=== PATIENT | female | born 1970 | race American Indian/Alaskan Native ===

== ENCOUNTER 2017-12-14 16:22 | Inpatient (IN) | payer MEDICAID, OTHER ==
[2017-12-14] MEDS ORDERED: Nicardipine 20 MG/200 ML 20 MG/200 ML BAG IV PRN ×2 (17:05→19:46)
--- NOTE | 2017-12-14 17:15 | ED PDOC ---
Arrival/HPI - General Chief Complaint: High Blood Pressure Time Seen by Provider: 12/14/17 17:03 Historian: Patient - History of Present Illness Narrative History of Present Illness (Text): 12/14/17 17:10 Patient is a 47 year old female whose past medical history includes hypertension, who presents to the emergency department complaining of elevated blood pressure. Patient reports that she hasn't taken her antihypertensive med ication for the past year. She notes that her medication regimen included Lisinopril but doesn't remember the other medication. Patient states that her current emergency department visited was prompted by seeing floaters for the past month. She currently denies any chest pain, headaches, shortness of breath, dyspnea on exertion, or any other complaints. Past Medical History - Travel History If Yes, travel location?: [place]; [place] - Cardiac Hx Cardiac Disorders: Yes Hx Hypertension: Yes - Pulmonary Hx Respiratory Disorders: No - Neurological Hx Neurological Disorder: No - HEENT Hx HEENT Disorder: No - Renal Hx Renal Disorder: No - Endocrine/Metabolic Hx Endocrine Disorders: No - Hematological/Oncological Hx Blood Disorders: No - Integumentary Hx Dermatological Disorder: No - Musculoskeletal/Rheumatological Hx Musculoskeletal Disorders: No - Gastrointestinal Hx Gastrointestinal Disorders: No - Genitourinary/Gynecological Hx Genitourinary Disorders: No - Psychiatric Hx Psychophysiologic Disorder: No Hx Substance Use: No - Anesthesia Hx Anesthesia: No Family/Social History Family/Social History: No Known Family HX Smoking Status: Heavy Smoker > 10 Cigarettes Daily Hx Alcohol Use: No Hx Substance Use: No Allergies/Home Meds Allergies/Adverse Reactions: Allergies No Known Allergies Allergy (Verified 12/14/17 16:49) Review of Systems - Review of Systems Eyes: Other (sees floaters) Respiratory: absent: SOB Cardiovascular: absent: Chest Pain, Edema, KATZ Neurological: absent: Headache, Dizziness Physical Exam Vital Signs Reviewed: Yes Vital Signs Temp Pulse Resp BP Pulse Ox 12/14/17 16:43 98.9 F 89 18 232/126 H 99 Temperature: Afebrile Blood Pressure: Hypertensive Pulse: Regular Respiratory Rate: Normal Appearance: Positive for: Well-Appearing Mental Status: Positive for: Alert and Oriented X 3 - Systems Exam Head: Present: Atraumatic, Normocephalic Pupils: Present: PERRL Extroacular Muscles: Present: EOMI Conjunctiva: Present: Normal Mouth: Present: Moist Mucous Membranes Neck: Present: Normal Range of Motion Respiratory/Chest: Present: Clear to Auscultation, Good Air Exchange. No: Respiratory Distress, Accessory Muscle Use Cardiovascular: Present: Regular Rate and Rhythm, Normal S1, S2. No: Murmurs Abdomen: No: Tenderness, Distention, Peritoneal Signs Back: Present: Normal Inspection Upper Extremity: Present: Normal Inspection. No: Cyanosis, Edema Lower Extremity: Present: Normal Inspection. No: Edema Neurological: Present: GCS=15, CN II-XII Intact, Speech Normal Skin: Present: Warm, Dry, Normal Color. No: Rashes Psychiatric: Present: Alert, Oriented x 3, Normal Insight, Normal Concentration Medical Decision Making ED Course and Treatment: 12/14/17 17:10 Impression: Patient is a 47 year old female complaining of elevated blood pressure and s eeing floaters. Differential Diagnosis included but are not limited to: Plan: -- Head CT without contrast -- EKG -- Cardiac enzymes -- Labs -- Blood work -- Chest X-ray -- Apresoline -- Nitrostat -- Reassess and disposition Progress Notes: 12/14/17 17:21 12/14/17 21:35 blood pressure still significantly elevated despite multiple interventions. patient does not exhibit acute end organ damage but BP remains critically high. will start patient on cardene drip and admit to icu. 12/14/17 22:32 admit accepted by hospitalist, blood pressure sig improved while on cardene drip. patient at this time does warrant icu but case has been discussed with dr. carnes for admission. - Lab Interpretations I have reviewed the lab results: Yes - RAD Interpretation Narrative RAD Interpretations (Text): 12/14/17 20:[address] without IV Contrast: Dictator: Dr.Aamer Escalante FINDINGS: BRAIN: No acute intraparenchymal hemorrhage. No mass lesion. No CT evidence for acute territorial infarct. No midline shift or extra-axial collections. VENTRICLES: No hydrocephalus ORBITS: The orbits are unremarkable. SINUSES AND MASTOIDS: There is opacification of the visualized right maxillary sinus. BONE: No fracture. IMPRESSION: 1) Normal appearing brain. 2) Right maxillary sinusitis. Radiology Orders: 12/14/17 17:03 CHEST PORTABLE [RAD] Stat 12/14/17 17:04 HEAD W/O CONTRAST [CT] Stat Auto Seat Cover Installer: Radiologist - EKG Interpretation EKG Interpretation (Text): 12/14/17 19:19 1716: nsr at 89 bpm, nonspecific intraventricular conduction delay, lvh, nonspecific t wave abn Interpreted by ED Physician: Yes Type: 12 lead EKG - Medication Orders Current Medication Orders: Nicardipine HCl (Cardene Iv Premix) 20 mg in 200 mls @ 50 mls/hr IV .Q4H PRN; Protocol PRN Reason: TITRATE PER MD ORDER - Scribe Statement The provider has reviewed the documentation as recorded by the Scribe Noble Rick Provider Scribe Attestation: All medical record entries made by the Scribe were at my direction and personally dictated by me. I have reviewed the chart and agree that the record accurately reflects my personal performance of the history, physical exam, medical decision making, and the department course for this patient. I have also personally directed, reviewed, and agree with the discharge instructions and disposition. Disposition/Present on Arrival - Present on Arrival Any Indicators Present on Arrival: No History of DVT/PE: No History of Uncontrolled Diabetes: No Urinary Catheter: No History of Decub. Ulcer: No History Surgical Site Infection Following: None - Disposition Have Diagnosis and Disposition been Completed?: Yes Diagnosis: Hypertension Disposition: HOSPITALIZED Disposition Time: 21:00 Patient Plan: Admission Condition: FAIR
[2017-12-14 17:35] LABS: BASO # 0.02 K/mm3 (0.0-2.0); BASO % 0.3 % (0.0-3.0); EOS # 0.1 (0.0-0.7); EOS % 1.1 % (1.5-5.0); GRAN # 3.91 (1.4-6.5); GRAN % 62.8 % (50.0-68.0); HEMOGLOBIN 10.1 g/dL (12.0-16.0); LYMPH # 1.9 (1.2-3.4); LYMPH % 29.9 % (22.0-35.0); MEAN CELL VOLUME 87.2 fl (80.0-105.0); MEAN CORPUSCULAR HEMOGLOBIN 28.1 pg (25.0-35.0); MEAN CORPUSCULAR HGB CONC 32.3 g/dl (31.0-37.0); MEAN PLATELET VOLUME 9.9 fl (7.0-11.0); MONO # 0.4 (0.1-0.6); MONO % 5.9 % (1.0-6.0); RBC 3.59 10^6/uL (3.5-6.1); RED CELL DISTRIBUTION WIDTH 16.2 % (11.5-14.5); WHITE BLOOD COUNT 6.2 10^3/ul (4.5-11.0)
[2017-12-14 17:44] LABS: INR 1.03; PARTIAL THROMBOPLASTIN TIME 23.8 Seconds (25.1-36.5); PROTHROMBIN TIME 11.7 SECONDS (9.4-12.5)
[2017-12-14 17:46] LABS: ALB/GLOB RATIO 1.1 (1.1-1.8); ALBUMIN 4.1 g/dL (3.0-4.8); ALT/SGPT 22 U/L (7-56); AST/SGOT 49 U/L (14-36); BLOOD UREA NITROGEN 13 mg/dL (7-21); CALCIUM 8.6 mg/dL (8.4-10.5); GFR NON-AFRICAN AMERICAN > 60
[2017-12-14 17:58] LABS: TROPONIN I < 0.01 ng/mL
[2017-12-15 00:24] LABS: HDL CHOLESTEROL 82 mg/dL (29-60)
[2017-12-15 00:42] LABS: LDL CHOLESTEROL 74 mg/dL (0-129)
--- NOTE | 2017-12-15 00:43 | CP.PCM.HP ---
<Sharon Hutton - Last Filed: 12/15/17 01:12> History of Present Illness - History of Present Illness History of Present Illness: HISTORY & PHYSICAL NOTE FOR HOSPITALIST TEAM Sharon Hutton D.O. PGY-1 CC: Seeing floaters, vision changes, hypertension 47 y/o F with PMHx of HTN presents to [facility] with complaints of "seeing white dots" and floaters for the past month. Pt reports that she has not seen a physician in over a year due to lack of insurance. She is aware that he has hypertension, but has not taken any medications in a year. She notes that she has symptoms of vision changes which include "jumping white dots" when her blood pressure increases. She denies fevers, chills, headache, dizziness, one-sided weakness, numbness, tingling, chest pain, palpitations, shortness of breath, nausea, vomiting, constipation, diarrhea, dysuria. PMH: HTN All: NKDA PSH: Denies SH: 1/2 pack/day x 20 years. Denies alcohol or illicit drug use. Admits to high salt diet FH: Mother: HIV, at 37 y/o. Father: unknown Meds: Previously had taken amlodipine. Tylenol pm for sleep PMD: none Present on Admission - Present on Admission Any Indicators Present on Admission: No Review of Systems - Review of Systems Review of Systems: as per HPI Past Patient History - Past Social History Smoking Status: Heavy Smoker > 10 Cigarettes Daily - CARDIAC Hx Cardiac Disorders: Yes Hx Hypertension: Yes - PULMONARY Hx Respiratory Disorders: No - NEUROLOGICAL Hx Neurological Disorder: No - HEENT Hx HEENT Problems: No - RENAL Hx Chronic Kidney Disease: No - ENDOCRINE/METABOLIC Hx Endocrine Disorders: No - HEMATOLOGICAL/ONCOLOGICAL Hx Blood Disorders: No - INTEGUMENTARY Hx Dermatological Problems: No - MUSCULOSKELETAL/RHEUMATOLOGICAL Hx Musculoskeletal Disorders: No - GASTROINTESTINAL Hx Gastrointestinal Disorders: No - GENITOURINARY/GYNECOLOGICAL Hx Genitourinary Disorders: No - PSYCHIATRIC Hx Psychophysiologic Disorder: No Hx Substance Use: No - SURGICAL HISTORY Hx Surgeries: No - ANESTHESIA Hx Anesthesia: No Meds Allergies/Adverse Reactions: Allergies Allergy/AdvReac Type Severity Reaction Status Date / Time No Known Allergies Allergy Verified 12/14/17 16:49 Physical Exam - Constitutional Appears: Well, Non-toxic, No Acute Distress - Head Exam Head Exam: NORMAL INSPECTION, NORMOCEPHALIC - Eye Exam Eye Exam: EOMI, Normal appearance, PERRL - ENT Exam ENT Exam: Mucous Membranes Moist, Normal Exam - Neck Exam Neck exam: Positive for: Normal Inspection - Respiratory Exam Respiratory Exam: Clear to Auscultation Bilateral, NORMAL BREATHING PATTERN - Cardiovascular Exam Cardiovascular Exam: REGULAR RHYTHM, +S1, +S2 - GI/Abdominal Exam GI & Abdominal Exam: Normal Bowel Sounds, Soft. absent: Tenderness - Extremities Exam Extremities exam: Positive for: normal inspection. Negative for: calf tenderness, pedal edema - Back Exam Back exam: NORMAL INSPECTION - Neurological Exam Neurological exam: Alert, CN II-XII Intact, Oriented x3 - Expanded Neurological Exam Expanded Patient oriented to: person, place, time Cranial nerves: EOM's Intact: Normal, Facial Palsey w/Forehead Movement: Normal Sensory exam: Lower Extremity 2 Point Discrimination: Normal, Upper Extremity 2 Point Discrimination: Normal Neuro motor strength exam: Left Upper Extremity: 5, Right Upper Extremity: 5, Left Lower Extremity: 5, Right Lower Extremity: 5 - Psychiatric Exam Psychiatric exam: Normal Affect, Normal Mood - Skin Skin Exam: Dry, Intact, Warm Results - Vital Signs Recent Vital Signs: Last Vital Signs Temp 98.2 F 12/14/17 19:33 Pulse 88 12/14/17 23:26 Resp 16 12/14/17 23:26 BP 177/92 H 12/14/17 23:26 Pulse Ox 99 12/14/17 23:26 - Labs Result Diagrams: 12/14/17 17:30 12/14/17 17:30 Labs: Laboratory Results - last 24 hr 12/14/17 12/14/17 12/14/17 17:30 17:30 17:30 WBC 6.2 RBC 3.59 Hgb 10.1 L Hct 31.3 L MCV 87.2 MCH 28.1 MCHC 32.3 RDW 16.2 H Plt Count 272 MPV 9.9 Gran % 62.8 Lymph % (Auto) 29.9 [place] % (Auto) 5.9 Eos % (Auto) 1.1 L Baso % (Auto) 0.3 Gran # 3.91 Lymph # (Auto) 1.9 [place] # (Auto) 0.4 Eos # (Auto) 0.1 Baso # (Auto) 0.02 PT 11.7 INR 1.03 APTT 23.8 L Sodium 140 Potassium 3.4 L Chloride 105 Carbon Dioxide 26 Anion Gap 12 BUN 13 Creatinine 0.7 Est GFR ( Amer) > 60 Est GFR (Non-Af Amer) > 60 Random Glucose 89 Calcium 8.6 Total Bilirubin 0.6 AST 49 H ALT 22 Alkaline Phosphatase 64 Troponin I < 0.01 Total Protein 7.8 Albumin 4.1 Globulin 3.7 Albumin/Globulin Ratio 1.1 Triglycerides Cholesterol HDL Cholesterol 12/14/17 17:30 WBC RBC Hgb Hct MCV MCH MCHC RDW Plt Count MPV Gran % Lymph % (Auto) [place] % (Auto) Eos % (Auto) Baso % (Auto) Gran # Lymph # (Auto) [place] # (Auto) Eos # (Auto) Baso # (Auto) PT INR APTT Sodium Potassium Chloride Carbon Dioxide Anion Gap BUN Creatinine Est GFR ( Amer) Est GFR (Non-Af Amer) Random Glucose Calcium Total Bilirubin AST ALT Alkaline Phosphatase Troponin I Total Protein Albumin Globulin Albumin/Globulin Ratio Triglycerides 127 Cholesterol 193 HDL Cholesterol 82 H Assessment & Plan - Assessment and Plan (Free Text) Assessment: 47 y/o F with PMH of HTN admitted for hypertensive urgency. Pt has not seen a physician or taken any medications for her HTN in over a year. She admits to consuming a high salt diet. In the ED, she was given 2 doses of hydralazine 10mg IVP and placed on a nicardipene drip @ 20mg in 200mls @50mls/hr. Her intial BP was 232/126 and had dropped to 145/65. Nicardipene drip was subsequently stopped. Pt admitted to telemetry floor Plan: Hypertensive Urgency vs Emergency likely secondary to high-salt diet and medication noncompliance Currently stable, no signs of end-organ damage. Start hydralazine 10mg IVP q4H prn for SBP >160mmhg Start amlodipine 10mg Start HCTZ 10mg po Heart healthy diet, 2g Na Sewing Pattern Layout Technician consult for low salt diet f/u TSH, Lipid panel, Hgb A1C for cardiac risk stratification If BP remains uncontrolled, consider secondary HTN workup Transaminitis likely secondary to hypertensive episode. R/o infectious cause f/u hepatitis panel, HIV panel Prolonged QTc interval Avoid QT prolonging drugs Left ventricular hypertrophy Likely secondary to increased afterload. Treat hypertension Hypokalemia Replete as necessary DVT/GI ppx: SCD/Pepcid Case seen, examined and discussed with attending physician, Dr. Flores <Karely Flores - Last Filed: 12/15/17 02:55> Results - Vital Signs Recent Vital Signs: Last Vital Signs Temp 98.9 F 12/14/17 23:38 Pulse 88 12/15/17 02:18 Resp 20 12/14/17 23:38 BP 177/94 H 12/15/17 02:18 Pulse Ox 99 12/14/17 23:26 - Labs Result Diagrams: 12/14/17 17:30 12/14/17 17:30 Labs: Laboratory Results - last 24 hr 12/14/17 12/14/17 12/14/17 17:30 17:30 17:30 WBC 6.2 RBC 3.59 Hgb 10.1 L Hct 31.3 L MCV 87.2 MCH 28.1 MCHC 32.3 RDW 16.2 H Plt Count 272 MPV 9.9 Gran % 62.8 Lymph % (Auto) 29.9 [place] % (Auto) 5.9 Eos % (Auto) 1.1 L Baso % (Auto) 0.3 Gran # 3.91 Lymph # (Auto) 1.9 [place] # (Auto) 0.4 Eos # (Auto) 0.1 Baso # (Auto) 0.02 PT 11.7 INR 1.03 APTT 23.8 L Sodium 140 Potassium 3.4 L Chloride 105 Carbon Dioxide 26 Anion Gap 12 BUN 13 Creatinine 0.7 Est GFR ( Amer) > 60 Est GFR (Non-Af Amer) > 60 Random Glucose 89 Calcium 8.6 Total Bilirubin 0.6 AST 49 H ALT 22 Alkaline Phosphatase 64 Troponin I < 0.01 Total Protein 7.8 Albumin 4.1 Globulin 3.7 Albumin/Globulin Ratio 1.1 Triglycerides Cholesterol LDL Cholesterol Direct HDL Cholesterol TSH 3rd Generation Urine Opiates Screen Urine Methadone Screen Ur Barbiturates Screen Ur Phencyclidine Scrn Ur Amphetamines Screen U Benzodiazepines Scrn U Oth Cocaine Metabols U Cannabinoids Screen 12/14/17 12/14/17 12/15/17 17:30 17:30 00:50 WBC RBC Hgb Hct MCV MCH MCHC RDW Plt Count MPV Gran % Lymph % (Auto) [place] % (Auto) Eos % (Auto) Baso % (Auto) Gran # Lymph # (Auto) [place] # (Auto) Eos # (Auto) Baso # (Auto) PT INR APTT Sodium Potassium Chloride Carbon Dioxide Anion Gap BUN Creatinine Est GFR ( Amer) Est GFR (Non-Af Amer) Random Glucose Calcium Total Bilirubin AST ALT Alkaline Phosphatase Troponin I Total Protein Albumin Globulin Albumin/Globulin Ratio Triglycerides 127 Cholesterol 193 LDL Cholesterol Direct 74 HDL Cholesterol 82 H TSH 3rd Generation 1.43 Urine Opiates Screen Negative Urine Methadone Screen Negative Ur Barbiturates Screen Negative Ur Phencyclidine Scrn Negative Ur Amphetamines Screen Negative U Benzodiazepines Scrn Negative U Oth Cocaine Metabols Negative U Cannabinoids Screen Negative Attending/Attestation - Attestation I have personally seen and examined this patient.: Yes I have fully participated in the care of the patient.: Yes I have reviewed all pertinent clinical information: Yes Notes (Text): 12/15/17 02:48 Patient was seen when she was in room 9 in the ER. Medical record was reviewed. Agree with history,physical examination, assessment and plan. This 47 year old woman with history of hypertension, tobacco dependence, allergy to penicillin(Rash), marijuana use, occasional alcohol use, seasonal allergies , use of reading glassed, menopausal symptoms,weight loss (30 lbs in 2 years-Voluntary), comes in with complaints of seeing floaters with both eyes for one month, had BP of 232/126 mmHg in the ER, was given multiple antihypertensives, then , cardene drip with which BP came down , is being admitted for observation.
[2017-12-15] MEDS ORDERED: Labetalol 5 mg/ml Inj 20ML IV STA ×2 (00:52→20:31)
[2017-12-15] MEDS ORDERED: Potassium Chloride 20 mEq ER Tab PO STA ×2 (00:59→08:11)
[2017-12-15 01:35] VITALS: BMI 24.2
[2017-12-15 01:59] LABS: BARBITURATES, UR NEGATIVE (NEGATIVE); BENZODIAZEPINES, UR NEGATIVE (NEGATIVE); OPIATES, UR NEGATIVE (NEGATIVE); PHENCYCLIDINE, UR NEGATIVE (NEGATIVE)
[2017-12-15 07:27] LABS: BASO # 0.04 K/mm3 (0.0-2.0); BASO % 0.5 % (0.0-3.0); EOS # 0.1 (0.0-0.7); EOS % 0.8 % (1.5-5.0); GRAN # 3.73 (1.4-6.5); GRAN % 48.5 % (50.0-68.0); HEMOGLOBIN 9.5 g/dL (12.0-16.0); LYMPH # 3.4 (1.2-3.4); LYMPH % 43.8 % (22.0-35.0); MEAN CELL VOLUME 84.7 fl (80.0-105.0); MEAN CORPUSCULAR HEMOGLOBIN 27.5 pg (25.0-35.0); MEAN CORPUSCULAR HGB CONC 32.4 g/dl (31.0-37.0); MEAN PLATELET VOLUME 10.2 fl (7.0-11.0); MONO # 0.5 (0.1-0.6); MONO % 6.4 % (1.0-6.0); RBC 3.46 10^6/uL (3.5-6.1); RED CELL DISTRIBUTION WIDTH 16.3 % (11.5-14.5); WHITE BLOOD COUNT 7.7 10^3/ul (4.5-11.0)
--- NOTE | 2017-12-15 07:36 | RAD ---
Date of service: 12/14/2017 HISTORY: chest pain COMPARISON: No prior. FINDINGS: LUNGS: No active pulmonary disease. PLEURA: No significant pleural effusion identified, no pneumothorax apparent. CARDIOVASCULAR: Marked cardiomegaly appreciated. No pulmonary vascular congestion. OSSEOUS STRUCTURES: No significant abnormalities. VISUALIZED UPPER ABDOMEN: Normal. OTHER FINDINGS: None. IMPRESSION: Marked cardiomegaly. No infiltrate, pleural effusion or pulmonary vascular congestion identified at this time.
[2017-12-15 07:53] LABS: ALB/GLOB RATIO 1.1 (1.1-1.8); ALBUMIN 3.9 g/dL (3.0-4.8); ALT/SGPT 18 U/L (7-56); AST/SGOT 32 U/L (14-36); BLOOD UREA NITROGEN 10 mg/dL (7-21); CALCIUM 8.8 mg/dL (8.4-10.5); GFR NON-AFRICAN AMERICAN > 60
[2017-12-15] MEDS ORDERED: Magnesium Sulfate 2 GM in Sodium Chloride 0.9% 100 ML IVPB ONE (08:11)
--- NOTE | 2017-12-15 08:17 | CT ---
Date of service: 12/14/2017 PROCEDURE: CT HEAD WITHOUT CONTRAST. HISTORY: ICH COMPARISON: None available. TECHNIQUE: Axial computed tomography images were obtained through the head/brain without intravenous contrast. Radiation dose: Total exam DLP = 872.22 mGy-cm. This CT exam was performed using one or more of the following dose reduction techniques: Automated exposure control, adjustment of the mA and/or kV according to patient size, and/or use of iterative reconstruction technique. FINDINGS: HEMORRHAGE: No intracranial hemorrhage. BRAIN: No mass effect or edema. No atrophy or chronic microvascular ischemic changes.Please note that MRI with diffusion imaging is more sensitive in the detection of acute ischemic event. VENTRICLES: No hydrocephalus. CALVARIUM: Unremarkable. PARANASAL SINUSES: Opacification of the right maxillary sinus. Partial opacification of the ethmoid air cells. Findings appear consistent with sinusitis. Correlate clinically. MASTOID AIR CELLS: Unremarkable as visualized. No inflammatory changes. OTHER FINDINGS: None. IMPRESSION: No acute intracranial pathology identified. Opacification of the right maxillary sinus. Partial opacification of the ethmoid air cells. Findings appear consistent with sinusitis. Correlate clinically. Preliminary impression was provided by [id number].
[2017-12-15] MEDS ORDERED: Magnesium Sulfate 2 gm/50 ml 2 GM/50 ML BAG IVPB ONE (08:29)
[2017-12-15 09:03] LABS: IRON 61 ug/dL (45-180)
[2017-12-15 09:13] LABS: % IRON SATURATION 14 % (20-55); TOTAL IRON BINDING CAPACITY 438 ug/dL (265-497)
--- NOTE | 2017-12-15 09:22 | CARD ---
APPROVED REPORT Date of service: 12/14/2017 EKG Measurement Heart [id number] CT [id number] <Conclusion> Normal sinus rhythm Possible Left atrial enlargement Left ventricular hypertrophy STTW changes c/e ischemia
[2017-12-15 12:24] LABS: HEPATITIS B SURFACE AG Negative (NEGATIVE)
[2017-12-15 12:30] LABS: HEPATITIS A IGM NEGATIVE (NEGATIVE); HEPATITIS B CORE AB NEGATIVE (NEGATIVE)
[2017-12-15 12:36] LABS: FERRITIN 5.5 ng/mL
[2017-12-15 12:42] LABS: HEPATITIS C ANTIBODY NEGATIVE (NEGATIVE)
[2017-12-15 13:07] LABS: FOLATE 5.9 ng/mL
[2017-12-15] MEDS ORDERED: Metoprolol 1 mg/ml Inj IVP ONE (19:08)
[2017-12-16] MEDS ORDERED: Labetalol 5 mg/ml Inj 20ML IV ONE (05:43)
[2017-12-16 06:37] LABS: BASO # 0.02 K/mm3 (0.0-2.0); BASO % 0.3 % (0.0-3.0); EOS # 0.1 (0.0-0.7); EOS % 1.6 % (1.5-5.0); GRAN # 2.96 (1.4-6.5); GRAN % 48.7 % (50.0-68.0); HEMOGLOBIN 9.3 g/dL (12.0-16.0); LYMPH # 2.5 (1.2-3.4); LYMPH % 41.2 % (22.0-35.0); MEAN CELL VOLUME 87.2 fl (80.0-105.0); MEAN CORPUSCULAR HEMOGLOBIN 27.8 pg (25.0-35.0); MEAN CORPUSCULAR HGB CONC 31.8 g/dl (31.0-37.0); MEAN PLATELET VOLUME 10.1 fl (7.0-11.0); MONO # 0.5 (0.1-0.6); MONO % 8.2 % (1.0-6.0); RBC 3.35 10^6/uL (3.5-6.1); RED CELL DISTRIBUTION WIDTH 16.7 % (11.5-14.5); WHITE BLOOD COUNT 6.1 10^3/ul (4.5-11.0)
[2017-12-16 07:02] LABS: ALB/GLOB RATIO 1.1 (1.1-1.8); ALBUMIN 3.7 g/dL (3.0-4.8); ALT/SGPT 17 U/L (7-56); AST/SGOT 33 U/L (14-36); BLOOD UREA NITROGEN 8 mg/dL (7-21); CALCIUM 8.9 mg/dL (8.4-10.5); GFR NON-AFRICAN AMERICAN > 60
[2017-12-16] MEDS ORDERED: Potassium Chloride 20 mEq ER Tab PO STA ×2 (07:10)
--- NOTE | 2017-12-16 09:38 | CARD ---
APPROVED REPORT Date of service: 12/15/2017 EXAM: Two-dimensional and M-mode echocardiogram with Doppler and color Doppler. Other Information Quality : AverageRhythm : INDICATION MARKED CARDIOMEGALY ON CXR 2D DIMENSIONS Left Atrium (2D)5.4 (1.6-4.0cm)IVSd1.6 (0.7-1.1cm) LVDd4.2 (3.9-5.9cm)PWd1.6 (0.7-1.1cm) LVDs3.4 (2.5-4.0cm) M-Mode DIMENSIONS Aortic Root3.30 (2.2-3.7cm)Aortic Cusp Exc.1.50 (1.5-2.0cm) Aortic Valve AoV Peak Dvxnmofe900.0cm/sAoV VTI47.4cmLVOT Peak Tnlodlaf261.0cm/s LVOT VTI32.30cm Mitral Valve MV E Eaicwirq691.0cm/sMV A Pmfeaaln147.0cm/sE/A ratio0.7 TDI Lateral E' Peak V6.73cm/sMedial E' Peak V11.40cm/sE/Lateral E'17.8 E/Medial E'10.5 Pulmonary Valve PV Peak Rixghbqi922.0cm/sPV Peak Grad.4mmHg Tricuspid Valve TR Peak Bljtreru206ng/sRAP [id number] Peak Gr.39mmHg [id number] LEFT VENTRICLE The left ventricle is normal size. There is severe concentric left ventricular hypertrophy. Left ventricle systolic function is mildly impaired. The Ejection Fraction is 40-45%. There is mild global hypokinesis. RIGHT VENTRICLE The right ventricle is normal size. ATRIA The left atrium is moderately dilated. The right atrium is borderline dilated. The interatrial septum is intact with no evidence for an atrial septal defect. AORTIC VALVE The aortic valve is normal in structure. MITRAL VALVE The mitral valve is normal in structure. Mitral regurgitation is trace to mild. TRICUSPID VALVE The tricuspid valve is normal in structure. There is mild tricuspid regurgitation. There is mild-moderate pulmonary hypertension. PULMONIC VALVE The pulmonary valve is normal in structure. There is trace pulmonic valvular regurgitation. GREAT VESSELS The aortic root is normal in size. PERICARDIAL EFFUSION There is a small circumferential pericardial effusion. <Conclusion> The left ventricle is normal size. There is severe concentric left ventricular hypertrophy. Left ventricle systolic function is mildly impaired. The Ejection Fraction is 40-45%. There is mild global hypokinesis. There is mild tricuspid regurgitation. Mitral regurgitation is trace to mild. There is mild-moderate pulmonary hypertension.
--- NOTE | 2017-12-16 16:36 | CP.PCM.PN ---
<Michelle Gilman - Last Filed: 12/16/17 16:33> Subjective - Date & Time of Evaluation Date of Evaluation: 12/16/17 Time of Evaluation: 07:15 - Subjective Subjective: PGY-1 Michelle Gilman D.O. Medicine progress note: Patient is seen and examined this morning. No over night events reported. Patient's vision and BROWN have presently resolved. She continues to have elevated BP, but improved from admission. Patient would prefer not to take hydralazine because it causes her BROWN. Patient is sleeping and eating well. She does not have any acute complaints. Objective - Vital Signs/Intake and Output Vital Signs (last 24 hours): Temp Pulse Resp BP Pulse Ox 97.1 F L 89 20 187/107 H 100 12/16/17 12:00 12/16/17 12:00 12/16/17 12:00 12/16/17 12:00 12/16/17 10:00 Intake and Output: 12/16/17 12/16/17 06:59 18:59 Intake Total 1020 Balance 1020 - Medications Medications: Current Medications Acetaminophen (Tylenol 325mg Tab) 650 mg PO Q6H PRN PRN Reason: Pain, Mild (1-3) Last Admin: 12/16/17 00:39 Dose: 650 mg Amlodipine Besylate (Norvasc) 10 mg PO DAILY [facility] Last Admin: 12/16/17 09:47 Dose: 10 mg Lisinopril (Zestril) 10 mg PO BID [facility] Metoprolol Tartrate (Lopressor) 25 mg PO BID [facility] Last Admin: 12/16/17 09:47 Dose: 25 mg - Labs Labs: 12/16/17 05:30 12/16/17 05:30 PT 11.7 SECONDS (9.4-12.5) 12/14/17 17:30 INR 1.03 12/14/17 17:30 APTT 23.8 Seconds (25.1-36.5) L 12/14/17 17:30 - Constitutional Appears: Non-toxic, No Acute Distress - Head Exam Head Exam: ATRAUMATIC, NORMAL INSPECTION - Eye Exam Eye Exam: EOMI, Normal appearance, PERRL - ENT Exam ENT Exam: Mucous Membranes Moist, Normal Exam - Neck Exam Neck Exam: Normal Inspection - Respiratory Exam Respiratory Exam: Clear to Ausculation Bilateral, NORMAL BREATHING PATTERN - Cardiovascular Exam Cardiovascular Exam: REGULAR RHYTHM, +S1, +S2, Murmur - GI/Abdominal Exam GI & Abdominal Exam: Soft, Normal Bowel Sounds. absent: Tenderness - Rectal Exam Rectal Exam: Deferred - Extremities Exam Extremities Exam: Full ROM, Normal Inspection. absent: Pedal Edema - Back Exam Back Exam: NORMAL INSPECTION - Neurological Exam Neurological Exam: Alert, Awake, CN II-XII Intact, Oriented x3 Neuro motor strength exam: Left Upper Extremity: 5, Right Upper Extremity: 5, Left Lower Extremity: 5, Right Lower Extremity: 5 - Psychiatric Exam Psychiatric exam: Normal Affect, Normal Mood - Skin Skin Exam: Dry, Intact, Normal Color, Warm Assessment and Plan - Assessment and Plan (Free Text) Assessment: Patient is a 47 yo AA female with a history of HTN who presented to the ED with vision changes and floaters. She was found to have SBP >200. Patient has not taken medications for the past year. Her HTN is thus far fairly resistant despite being on 3 medications. Plan: HTN urgency, improved- elevated BP despite 3 medications - BP initially 211/111, now 160s-180s/80s-100s - TSH wnl - UDS negative - Metoprolol 25 mg PO BID - Lisinopril 10 mg PO BID - Norvasc 10 mg PO daily - Discontinued HCTZ due to hypokalemia - Tylenol 650 mg PO Q6H PEN for BROWN - Nephrology consulted (Sofi) Left ventricular hypertropy - Echo: EF 40-45%, severe LVH, mild-mod pulm HTN - Cardiology consulted (Owen) Anemia - MCV wnl - B12, folate wnl - Iron, TIBC, tranferritin, ferritin wnl Hypokalemia, improving - Repleted - Monitor BMP daily Hypomagnesemia, resolved - Repleted - Monitor daily IVF: not indicated Diet: heart healthy GI ppx: not indicated VTE ppx: SCD Code status: full code Patient will f/u at [facility] upon discharge. Case discussed with attending, Dr. Keith. <Elva Keith - Last Filed: 12/19/17 17:17> Objective - Vital Signs/Intake and Output Vital Signs (last 24 hours): Temp Pulse Resp BP Pulse Ox 98.3 F 69 18 135/79 100 12/18/17 12:00 12/18/17 14:00 12/18/17 12:00 12/18/17 12:00 12/18/17 12:00 - Labs Labs: 12/18/17 07:00 12/18/17 07:00 PT 11.7 SECONDS (9.4-12.5) 12/14/17 17:30 INR 1.03 12/14/17 17:30 APTT 23.8 Seconds (25.1-36.5) L 12/14/17 17:30 Attending/Attestation - Attestation I have personally seen and examined this patient.: Yes I have fully participated in the care of the patient.: Yes I have reviewed all pertinent clinical information, including history, physical exam and plan: Yes Notes (Text): Patient seen and examined by me at 10:35 AM with resident 12/16/17. Case including HPI, physical exam, andassessment and plan discussed with resident. Agree with above with following additions/corrections. Patient is a 47 year old female with past medical history significant for hypertension and tobacco abuse that presented to the emergency room with vision changes and seeing floaters. Patient states she is feeling better. States she only sees floaters when her blood pressure is elevated. Patient is denying any chest pain or shortness of breath. No headaches or dizziness. No lightheadedness. No fevers or chills. No nausea, vomiting, or abdominal pain. No dysuria. No diarrhea or constipation. Physical exam: General: Awake and alert lying in bed in no acute distress HEENT: Normocephalic atraumatic. Pupils equal reactive. No scleral icterus. Oropharynx is pink and moist. No pharyngeal erythema or exudate appreciated. Neck is supple. Cardiovascular: Normal rhythm. Normal S1, S2. No murmurs, rubs or gallops appreciated Pulmonary: Normal respiratory effort. No rhonchi, rales or wheezing appreciated. Gastrointestinal: Soft, nondistended. Nontender. Positive bowel sounds all 4 quadrants, no guarding. Musculoskeletal: Moves all extremities, no calf tenderness, no edema appreciated. Central nervous system: AAOx3, CN2-12 grossly intact Dermatologic: Skin warm and dry. Assessment and plan: Patient is a 47 year old female with past medical history significant for hypertension and tobacco abuse that presented to the emergency room with vision changes and seeing floaters. 1. Hypertensive urgency. Improving. Continue with Metoprolol, Lisinopril, and Norvasc. HCTZ stopped secondary to hypokalemia. Continue to monitor. 2. Hypokalemia. Improving. Continue to replace potassium. Follow up repeat labs in AM. 3. Left ventricular hypertrophy. Likely secondary to uncontrolled long standing hypertension. 2D echo per terry cloth cutter hand shows left ventricle is normal size, there is severe concentric left ventricular hypertrophy, left ventricle systolic function is mildly impaired, EF is 40-45%, mild global hypokinesis (please see official read for full details). Cardiology consulted, follow up recommendations. 4. Anemia. Iron levels within normal limits. Unsure of baseline H&H. Patient advised that she will need outpatient follow up for this with a primary care doctor. Case was discussed in detail with the patient regarding current diagnosis and treatment plan.
[2017-12-16 22:45] LABS: URINE BILIRUBIN NEGATIVE (NEGATIVE); URINE BLOOD NEGATIVE (NEGATIVE); URINE GLUCOSE (UA) NEGATIVE (NEGATIVE); URINE LEUKOCYTE ESTERASE NEGATIVE Leu/uL (NEGATIVE); URINE PROTEIN NEGATIVE mg/dL (<30 mg/dL); URINE UROBILINOGEN 0.2 E.U./dL (<1 E.U./dL)
[2017-12-16 22:46] LABS: URINE APPEARANCE CLEAR (CLEAR); URINE COLOR YELLOW (YELLOW)
--- NOTE | 2017-12-17 05:39 | CON ---
DATE: 12/16/2017 REASON FOR CONSULTATION: Uncontrolled hypertension. HISTORY OF PRESENTING ILLNESS: A 47-year-old young black woman presented to the emergency room yesterday with complaints of white floaters in her eyes. She reported that she has a history of hypertension for 10 years, but has not been on medication for the last one year. She reports that she has no insurance, and that is the reason she was not taking any medication. She denies any chest pain. She denies any palpitations. She denies any shortness of breath. She denies any history of diabetes, heart disease, hyperlipidemia. There is no history of any operations. In the emergency room, her pressure was 182/99. Her initial WBC count was 6.2, hemoglobin was 10, her initial potassium was 3.4. She was given Apresoline 10 mg IV in the emergency room. She was also given another 25 mg IV. She was started on Lopressor 25 b.i.d., amlodipine 10, Zestril 10 b.i.d. PAST MEDICAL AND SURGICAL HISTORY: Hypertension for 10 plus years. SOCIAL HISTORY: Smoking. No alcohol use, no IV drug abuse. FAMILY HISTORY: Hypertension. ALLERGIES: NO KNOWN DRUG ALLERGIES. MEDICATIONS AT HOME: None. REVIEW OF SYSTEMS: All systems are reviewed, pertinent positives as mentioned in the history of presenting illness, rest unremarkable. PHYSICAL EXAMINATION: GENERAL: Young woman lying in bed, in no acute distress at this time. VITAL SIGNS: Blood pressure 187/107, heart rate 73, respiratory rate 20, temperature 97.1. HEENT: Normocephalic, atraumatic, positive pallor. No icterus. NECK: Supple, no JVD. LUNGS: Bilateral equal air entry, bilateral equal expansion, no rales. CARDIAC: S1 and S2, regular rate and rhythm, no murmur, no rub. ABDOMEN: Soft, nondistended, nontender, bowel sounds present. EXTREMITIES: No lower extremity edema. LABORATORY DATA: Sodium 137, potassium 3.1, chloride 107, CO2 of 22, BUN 8, creatinine 0.6, glucose 100, calcium 8.9, phosphorus 3.7, magnesium 1.9, iron saturation 14, iron 61, transferrin saturation 377, ferritin 5.5. AST 33, ALT 17. WBC 6, hemoglobin 9.3, hematocrit 29, platelets 266, MCV 87. Urine toxicology negative. Hepatitis profile negative. Echocardiogram; severe concentric left ventricular hypertrophy, decreased ejection fraction of 45%, mild global hypokinesis, mild tricuspid regurgitation, mild mitral regurgitation, moderate pulmonary hypertension. ASSESSMENT: 1. Severe uncontrolled hypertension, early onset hypertension. Patient with a history of hypertension for the last 10 years, i.e. when she was 37 years old. That is a relatively early onset of hypertension. 2. Unprovoked hypokalemia. The patient is not on any diuretics and her potassium is low, need to consider secondary causes of hypertension. 3. Hypertensive heart disease, left ventricular hypertrophy. 4. Pulmonary hypertension, etiology (?). PLAN: 1. Check urinalysis. 2. Check plasma renin, plasma aldosterone levels. 3. Renal ultrasound, rule out adrenal adenoma. 4. Renal ultrasound also will show symmetrical or nonsymmetrical kidneys, since renal artery stenosis is also in the differential diagnoses in this young woman with early onset hypertension. Agree with current antihypertensive regimen with beta-neeru, calcium channel neeru and STEPHANE inhibitor. Thank you for the courtesy of this consultation. We will follow this patient as needed. Bette Farah MD
[2017-12-17] MEDS ORDERED: Labetalol 5 mg/ml Inj 20ML IV ONE (06:20)
[2017-12-17 07:12] LABS: BASO # 0.01 K/mm3 (0.0-2.0); BASO % 0.2 % (0.0-3.0); EOS # 0.1 (0.0-0.7); EOS % 2.1 % (1.5-5.0); GRAN # 1.97 (1.4-6.5); GRAN % 38.4 % (50.0-68.0); HEMOGLOBIN 9.1 g/dL (12.0-16.0); LYMPH # 2.6 (1.2-3.4); LYMPH % 49.8 % (22.0-35.0); MEAN CELL VOLUME 88.3 fl (80.0-105.0); MEAN CORPUSCULAR HGB CONC 31.7 g/dl (31.0-37.0); MEAN PLATELET VOLUME 10.6 fl (7.0-11.0); MONO # 0.5 (0.1-0.6); MONO % 9.5 % (1.0-6.0); RBC 3.25 10^6/uL (3.5-6.1); RED CELL DISTRIBUTION WIDTH 16.9 % (11.5-14.5); WHITE BLOOD COUNT 5.1 10^3/ul (4.5-11.0)
[2017-12-17 07:39] LABS: ALB/GLOB RATIO 1.1 (1.1-1.8); ALBUMIN 3.7 g/dL (3.0-4.8); ALT/SGPT 19 U/L (7-56); AST/SGOT 32 U/L (14-36); BLOOD UREA NITROGEN 9 mg/dL (7-21); CALCIUM 8.8 mg/dL (8.4-10.5); GFR NON-AFRICAN AMERICAN > 60
--- NOTE | 2017-12-17 14:15 | US ---
Date of service: 12/17/2017 PROCEDURE: Ultrasound of the Kidneys HISTORY: htn COMPARISON: None available. TECHNIQUE: Sonogram of the kidneys. FINDINGS: RIGHT KIDNEY: Measures: 5.2 x 10.0 cm. Normal in size, contour and echogenicity. No stone, solid mass lesion or hydronephrosis visualized. LEFT KIDNEY: Measures: 5.5 x 10.2 cm. Normal in size, contour and echogenicity. No stone, solid mass lesion or hydronephrosis visualized. OTHER FINDINGS: None. IMPRESSION: Unremarkable renal sonogram.
[2017-12-17] MEDS: Potassium Chloride 10 mEq ER Tab PO SCH (14:21)
--- NOTE | 2017-12-17 16:31 | CON ---
DATE: 12/17/2017HISTORY OF PRESENT ILLNESS: The patient is a 47-year-old female who has history of hypertension, is being treated at [facility] in [place] and she relocated to [place] recently and decided to come to the hospital for her blood pressure checkup. She came to have had high blood pressure, but does not recall experiencing symptoms of headaches, dizziness or blurry vision. The patient is unaware of any history of heart attack in the past. The patient does not recall her medical doctor at the clinic. However, she is seeing different physicians each time she go there. SOCIAL HISTORY: The patient is a smoker and occasional drinker. MEDICATIONS: Benadryl 50 mg at bedtime, Lopressor 25 mg twice a day, Norvasc 10 mg once a day, Zestril 10 mg twice a day. REVIEW OF SYSTEMS: No fever or chills. No nausea or vomiting. No dizziness or blurry vision. PHYSICAL EXAMINATION: VITAL SIGNS: Blood pressure 168/107, heart rate 74, temperature 98.1, respirations 20. HEENT: Normocephalic. CHEST: Clear. HEART: S1 and S2 regular. EXTREMITIES: No edema. LABORATORY DATA: Hemoglobin and hematocrit 9.1 and 28.7. White count and platelet count are within normal limit. Today's SMA-7 is within normal limits except for chloride of 108 and creatinine 0.6, potassium on admission was 3.4. One set of troponin on admission was negative. Drug screen was negative. Hepatitis profile was negative. Echocardiography study revealed ejection fraction at a range of 40-45% with mild global hypokinesis and [id number] pulmonary hypertension. EKG revealed sinus rhythm, LVH with repolarization changes, although it was officially read as consider ischemia. ASSESSMENT: 1. Uncontrolled hypertension. 2. Mildly depressed left ventricular systolic function. 3. [id number] pulmonary hypertension. RECOMMENDATIONS: Continue Zestril 10 mg p.o. twice a day, Norvasc 10 mg once a day, Lopressor 25 mg twice a day. Start hydrochlorothiazide 12.5 mg once a day and K-Dur at 10 mEq once a day. Fernando Weaver MD [facility] # [id number]
--- NOTE | 2017-12-17 18:45 | CP.PCM.PN ---
<Jan Dobbs - Last Filed: 12/17/17 18:41> Subjective - Date & Time of Evaluation Date of Evaluation: 12/17/17 Time of Evaluation: 18:42 - Subjective Subjective: Internal Medicine Progress Note (Hospitalist Service): SidraScott PGY2 Patient seen and assessed at bedside. No acute events noted overnight. She denies any complaints at this time including fevers, chills, headache, chest pain, SOB, abdominal pain, N/V/D/C, changes in urine output, or any skin changes. Objective - Vital Signs/Intake and Output Vital Signs (last 24 hours): Temp Pulse Resp BP Pulse Ox 98.8 F 91 H 20 185/101 H 97 12/17/17 18:00 12/17/17 18:00 12/17/17 18:00 12/17/17 18:00 12/17/17 06:00 Intake and Output: 12/17/17 12/17/17 06:59 18:59 Intake Total 1240 Output Total 360 Balance 880 - Medications Medications: Current Medications Acetaminophen (Tylenol 325mg Tab) 650 mg PO Q6H PRN PRN Reason: Pain, Mild (1-3) Last Admin: 12/16/17 00:39 Dose: 650 mg Amlodipine Besylate (Norvasc) 10 mg PO DAILY [facility] Last Admin: 12/17/17 10:24 Dose: 10 mg Diphenhydramine HCl (Benadryl) 50 mg PO HS PRN PRN Reason: Insomnia Last Admin: 12/16/17 22:58 Dose: 50 mg Hydrochlorothiazide (Microzide) 12.5 mg PO DAILY [facility] Last Admin: 12/17/17 14:21 Dose: 12.5 mg Lisinopril (Zestril) 10 mg PO BID [facility] Last Admin: 12/17/17 17:57 Dose: 10 mg Metoprolol Tartrate (Lopressor) 25 mg PO BID [facility] Last Admin: 12/17/17 17:57 Dose: 25 mg Potassium Chloride (Klor-Con 10) 10 meq PO BRK [facility] Last Admin: 12/17/17 14:21 Dose: 10 meq - Labs Labs: 12/17/17 06:30 12/17/17 06:30 PT 11.7 SECONDS (9.4-12.5) 12/14/17 17:30 INR 1.03 12/14/17 17:30 APTT 23.8 Seconds (25.1-36.5) L 12/14/17 17:30 - Constitutional Appears: Non-toxic, No Acute Distress - Head Exam Head Exam: ATRAUMATIC, NORMOCEPHALIC - Eye Exam Eye Exam: EOMI, Normal appearance - ENT Exam ENT Exam: Mucous Membranes Moist - Neck Exam Neck Exam: Full ROM, Normal Inspection - Respiratory Exam Respiratory Exam: Clear to Ausculation Bilateral, NORMAL BREATHING PATTERN. absent: Accessory Muscle Use, Chest Wall Tenderness, Decreased Breath Sounds, Prolonged Expiratory Phase, Rales, Rhonchi, Wheezes, Respiratory Distress, Stridor - Cardiovascular Exam Cardiovascular Exam: REGULAR RHYTHM, RRR, +S1, +S2. absent: Bradycardia, Tachycardia, Clicks, Diastolic murmur, Gallop, Irregular Rhythm, JVD, Rubs, +S4, Murmur - GI/Abdominal Exam GI & Abdominal Exam: Soft, Normal Bowel Sounds. absent: Tenderness - Extremities Exam Extremities Exam: absent: Calf Tenderness - Neurological Exam Neurological Exam: Alert, Awake, Oriented x3 - Psychiatric Exam Psychiatric exam: Normal Affect, Normal Mood - Skin Skin Exam: Dry, Intact, Normal Color, Warm Assessment and Plan - Assessment and Plan (Free Text) Assessment: 47 year old female with a past medical history significant for HTN who presented with hypertensive urgency. Plan: 1. Hypertensive Urgency -CT Head showed sinusitis and no IC abnormalities -Echo showed severe concentric LVH with mildly impaired LV systolic function with an EF of 40-45% -Renal US unremarkable -S/P Cardene drip -Started on HCTZ and Potassium supplementation -Continue Lopressor, Lipitor and Norvasc -Secondary causes of HTN including hyperaldosteronism pending -Nephrology and Cardiology consulted, all recommendations appreciated DVT Prophylaxis: SCD's Patient seen and case discussed with attending, Dr. Elva Keith. <Elva Keith R - Last Filed: 12/19/17 17:22> Objective - Vital Signs/Intake and Output Vital Signs (last 24 hours): Temp Pulse Resp BP Pulse Ox 98.3 F 69 18 135/79 100 12/18/17 12:00 12/18/17 14:00 12/18/17 12:00 12/18/17 12:00 12/18/17 12:00 - Labs Labs: 12/18/17 07:00 12/18/17 07:00 PT 11.7 SECONDS (9.4-12.5) 12/14/17 17:30 INR 1.03 12/14/17 17:30 APTT 23.8 Seconds (25.1-36.5) L 12/14/17 17:30 Attending/Attestation - Attestation I have personally seen and examined this patient.: Yes I have fully participated in the care of the patient.: Yes I have reviewed all pertinent clinical information, including history, physical exam and plan: Yes Notes (Text): Patient seen and examined by me at 8:45 AM with resident 12/17/17. Case including HPI, physical exam, andassessment and plan discussed with resident. Agree with above with following additions/corrections. Patient is a 47 year old female with past medical history significant for hypertension and tobacco abuse that presented to the emergency room with vision changes and seeing floaters. Patient states she is feeling much better. No "floaters" currently. No headaches, dizzinesss, or lightheadedness. No chest pain or shortness of breath. No fevers or chills. No nausea, vomiting, or abdominal pain. No dysuria. No diarrhea or constipation. Physical exam: General: Awake and alert lying in bed in no acute distress HEENT: Normocephalic atraumatic. Pupils equal reactive. No scleral icterus. Oropharynx is pink and moist. No pharyngeal erythema or exudate appreciated. Neck is supple. Cardiovascular: Normal rhythm. Normal S1, S2. No murmurs, rubs or gallops appreciated Pulmonary: Normal respiratory effort. No rhonchi, rales or wheezing appreciated. Gastrointestinal: Soft, nondistended. Nontender. Positive bowel sounds all 4 quadrants, no guarding. Musculoskeletal: Moves all extremities, no calf tenderness, no edema appreciated. Central nervous system: AAOx3, CN2-12 grossly intact Dermatologic: Skin warm and dry. Assessment and plan: Patient is a 47 year old female with past medical history significant for hypertension and tobacco abuse that presented to the emergency room with vision changes and seeing floaters. 1. Hypertensive urgency. Blood pressure improved. Continue with Metoprolol, Lisinopril, and Norvasc. HCTZ added with potassium by cardiology. Cardiology and nephrology following, recommendations appreciated. Renal ultrasound results pending. Continue to monitor. 2. Hypokalemia. Resolved. Continue to monitor. 3. Left ventricular hypertrophy. Hypertensive cardiomyopathy. Likely secondary to uncontrolled long standing hypertension. 2D echo per product design engineer shows left ventricle is normal size, there is severe concentric left ventricular hypertrophy, left ventricle systolic function is mildly impaired, EF is 40-45%, mild global hypokinesis (please see official read for full details). Cardiology following, recommendations appreciated. 4. Anemia. Iron levels within normal limits. Unsure of baseline H&H. H&H stable. Patient advised that she will need outpatient follow up for this with a primary care doctor. Case was discussed in detail with the patient regarding current diagnosis and treatment plan.
[2017-12-17 23:23] VITALS: RESP 18; O2SAT 100
[2017-12-18 08:08] LABS: BASO # 0.04 K/mm3 (0.0-2.0); BASO % 0.8 % (0.0-3.0); EOS # 0.1 (0.0-0.7); EOS % 2.3 % (1.5-5.0); GRAN % 38.9 % (50.0-68.0); HEMOGLOBIN 9.1 g/dL (12.0-16.0); LYMPH # 2.5 (1.2-3.4); LYMPH % 48.1 % (22.0-35.0); MEAN CORPUSCULAR HEMOGLOBIN 27.9 pg (25.0-35.0); MEAN CORPUSCULAR HGB CONC 31.7 g/dl (31.0-37.0); MEAN PLATELET VOLUME 10.9 fl (7.0-11.0); MONO # 0.5 (0.1-0.6); MONO % 9.9 % (1.0-6.0); RBC 3.26 10^6/uL (3.5-6.1); RED CELL DISTRIBUTION WIDTH 16.7 % (11.5-14.5); WHITE BLOOD COUNT 5.1 10^3/ul (4.5-11.0)
[2017-12-18] MEDS: Potassium Chloride 10 mEq ER Tab PO SCH (08:13)
[2017-12-18 08:14] LABS: ALB/GLOB RATIO 1.2 (1.1-1.8); ALBUMIN 3.8 g/dL (3.0-4.8); ALT/SGPT 25 U/L (7-56); AST/SGOT 40 U/L (14-36); BLOOD UREA NITROGEN 13 mg/dL (7-21); CALCIUM 9.1 mg/dL (8.4-10.5); GFR NON-AFRICAN AMERICAN > 60
[2017-12-18] MEDS ORDERED: Potassium Chloride 20 mEq ER Tab PO ONE (08:32)
[2017-12-18] MEDS ORDERED: Potassium Chloride 10 mEq ER Tab PO SCH (13:17)
[2017-12-18 13:22] VITALS: BP 135/79; TEMP 98.3
[2017-12-18 15:37] VITALS: PULSE 69
--- NOTE | 2017-12-18 16:36 | PN ---
DATE: 12/18/2017 SUBJECTIVE: The patient is seen lying in bed. She is comfortable. She has no headaches, dizziness, palpitations. PHYSICAL EXAMINATION: GENERAL: Young woman, lying in bed. VITAL SIGNS: Blood pressure 161/89, heart rate 69, respiratory rate 18, temperature 98.2. EXTREMITIES: No lower extremity edema. LABORATORY DATA: WBC 5, hemoglobin 9, hematocrit 28.7, platelets 271. Sodium 137, potassium 3.5, chloride 106, CO2 of 23, BUN 13, creatinine 0.7, glucose 80, calcium 9.1, phosphorus 5.5, magnesium 1.8. Iron saturation 14, iron 61 and ferritin 5.5. Albumin 3.8, globulin 3.3. Urinalysis; yellow clear, pH 6, specific gravity 1.010, no protein, no blood. Renal ultrasound, right kidney 10 cm, left kidney 10.2 cm; no stone, solid mass, lesion or hydronephrosis. No comment on the adrenals. ASSESSMENT: 1. Young woman with early onset hypertension, severe hypertension, hypertensive emergency. 2. Hypokalemia, the patient is not on any diuretics or potassium lowering medications. 3. Left ventricular hypertrophy, hypertensive heart disease. PLAN: 1. The patient remains hypokalemic, we will start her on Aldactone 25 mg b.i.d. 2. Renal ultrasound shows normal size kidneys, but there is no comment on the adrenals. 3. Okay to have workup completed as outpatient. 4. Follow up plasma renin and plasma aldosterone. 5. Discussed with residents. Bette Farah MD
--- NOTE | 2017-12-18 17:06 | CP.PCM.DIS ---
Provider - Provider Date of Admission: 12/14/17 22:24 Attending physician: Elva Keith DO Primary care physician: [facility] Consults: Cardio: Dr. Weaver Nephrology: Dr. Farah Time Spent in preparation of Discharge (in minutes): 52 Hospital Course - Lab Results Lab Results: Most Recent Lab Values WBC 5.1 10^3/ul (4.5-11.0) 12/18/17 07:00 RBC 3.26 10^6/uL (3.5-6.1) L 12/18/17 07:00 Hgb 9.1 g/dL (12.0-16.0) L 12/18/17 07:00 Hct 28.7 % (36.0-48.0) L 12/18/17 07:00 MCV 88.0 fl (80.0-105.0) 12/18/17 07:00 MCH 27.9 pg (25.0-35.0) 12/18/17 07:00 MCHC 31.7 g/dl (31.0-37.0) 12/18/17 07:00 RDW 16.7 % (11.5-14.5) H 12/18/17 07:00 Plt Count 271 10^3/uL (120.0-450.0) 12/18/17 07:00 MPV 10.9 fl (7.0-11.0) 12/18/17 07:00 Gran % 38.9 % (50.0-68.0) L 12/18/17 07:00 Lymph % (Auto) 48.1 % (22.0-35.0) H 12/18/17 07:00 Caswell % (Auto) 9.9 % (1.0-6.0) H 12/18/17 07:00 Eos % (Auto) 2.3 % (1.5-5.0) 12/18/17 07:00 Baso % (Auto) 0.8 % (0.0-3.0) 12/18/17 07:00 Gran # 2.00 (1.4-6.5) 12/18/17 07:00 Lymph # (Auto) 2.5 (1.2-3.4) 12/18/17 07:00 Caswell # (Auto) 0.5 (0.1-0.6) 12/18/17 07:00 Eos # (Auto) 0.1 (0.0-0.7) 12/18/17 07:00 Baso # (Auto) 0.04 K/mm3 (0.0-2.0) 12/18/17 07:00 PT 11.7 SECONDS (9.4-12.5) 12/14/17 17:30 INR 1.03 12/14/17 17:30 APTT 23.8 Seconds (25.1-36.5) L 12/14/17 17:30 Sodium 137 mmol/L (132-148) 12/18/17 07:00 Potassium 3.5 mmol/L (3.6-5.0) L 12/18/17 07:00 Chloride 106 mmol/L (98-107) 12/18/17 07:00 Carbon Dioxide 23 mmol/L (21-33) 12/18/17 07:00 Anion Gap 12 (10-20) 12/18/17 07:00 BUN 13 mg/dL (7-21) 12/18/17 07:00 Creatinine 0.7 mg/dl (0.7-1.2) 12/18/17 07:00 Est GFR ( Amer) > 60 12/18/17 07:00 Est GFR (Non-Af Amer) > 60 12/18/17 07:00 Random Glucose 80 mg/dL (70-110) 12/18/17 07:00 Hemoglobin A1c 4.7 % (4.2-6.5) 12/14/17 17:30 Calcium 9.1 mg/dL (8.4-10.5) 12/18/17 07:00 Phosphorus 5.5 mg/dL (2.5-4.5) H 12/18/17 07:00 Magnesium 1.8 mg/dL (1.7-2.2) 12/18/17 07:00 Iron 61 ug/dL (45-180) 12/15/17 08:45 TIBC 438 ug/dL (265-497) 12/15/17 08:45 % Saturation 14 % (20-55) L 12/15/17 08:45 Transferrin 377.82 mg/dL (206-381) 12/15/17 08:45 Ferritin 5.5 ng/mL 12/15/17 08:45 Total Bilirubin 0.4 mg/dL (0.2-1.3) 12/18/17 07:00 AST 40 U/L (14-36) H D 12/18/17 07:00 ALT 25 U/L (7-56) 12/18/17 07:00 Alkaline Phosphatase 51 U/L (38-126) 12/18/17 07:00 Troponin I < 0.01 ng/mL 12/14/17 17:30 Total Protein 7.1 g/dL (5.8-8.3) 12/18/17 07:00 Albumin 3.8 g/dL (3.0-4.8) 12/18/17 07:00 Globulin 3.3 gm/dL 12/18/17 07:00 Albumin/Globulin Ratio 1.2 (1.1-1.8) 12/18/17 07:00 Triglycerides 127 mg/dL (35-160) 12/14/17 17:30 Cholesterol 193 mg/dL (130-200) 12/14/17 17:30 LDL Cholesterol Direct 74 mg/dL (0-129) 12/14/17 17:30 HDL Cholesterol 82 mg/dL (29-60) H 12/14/17 17:30 Vitamin B12 488 pg/mL (239-931) 12/15/17 08:45 Folate 5.9 ng/mL 12/15/17 08:45 TSH 3rd Generation 1.43 mIU/mL (0.46-4.68) 12/14/17 17:30 Urine Color Yellow (YELLOW) 12/16/17 22:37 Urine Appearance Clear (CLEAR) 12/16/17 22:37 Urine pH 6.0 (4.7-8.0) 12/16/17 22:37 Ur Specific Novelty 1.010 (1.005-1.035) 12/16/17 22:37 Urine Protein Negative mg/dL (<30 mg/dL) 12/16/17 22:37 Urine Glucose (UA) Negative mg/dL (NEGATIVE) 12/16/17 22:37 Urine Ketones Negative mg/dL (NEGATIVE) 12/16/17 22:37 Urine Blood Negative (NEGATIVE) 12/16/17 22:37 Urine Nitrate Negative (NEGATIVE) 12/16/17 22:37 Urine Bilirubin Negative (NEGATIVE) 12/16/17 22:37 Urine Urobilinogen 0.2 E.U./dL (<1 E.U./dL) 12/16/17 22:37 Ur Leukocyte Esterase Negative Kaylie/uL (NEGATIVE) 12/16/17 22:37 Urine Opiates Screen Negative (NEGATIVE) 12/15/17 00:50 Urine Methadone Screen Negative (NEGATIVE) 12/15/17 00:50 Ur Barbiturates Screen Negative (NEGATIVE) 12/15/17 00:50 Ur Phencyclidine Scrn Negative (NEGATIVE) 12/15/17 00:50 Ur Amphetamines Screen Negative (NEGATIVE) 12/15/17 00:50 U Benzodiazepines Scrn Negative (NEGATIVE) 12/15/17 00:50 U Oth Cocaine Metabols Negative (NEGATIVE) 12/15/17 00:50 U Cannabinoids Screen Negative (NEGATIVE) 12/15/17 00:50 Hepatitis A IgM Ab Negative (NEGATIVE) 12/14/17 17:30 Hep Bs Antigen Negative (NEGATIVE) 12/14/17 17:30 Hep B Core IgM Ab Negative (NEGATIVE) 12/14/17 17:30 Hepatitis C Antibody Negative (NEGATIVE) 12/14/17 17:30 HIV 1&2 Antibody Screen Negative (NEGATIVE) 12/14/17 17:30 - Hospital Course Hospital Course: 47 year old female with a past medical history significant for HTN who presented with hypertensive urgency. She was started on a Cardene drip. CT Head showed sinusitis and no IC abnormalities. Echo showed severe concentric LVH with mildly impaired LV systolic function with an EF of 40-45%. Renal US unremarkable. Cardiology and Nephrology were consulted. Patient was started on Lisinopril 10 BID, Lopressor 25 BID, and Norvasc 10mg daily. Her blood pressure was still uncontrolled after these medications were started. Patient was then started on HCTZ with potassium supplementation, as she was noted to have hypokalemia requiring replenishment on multiple occasions. It was ultimately decided that she should be started on Aldactone 25 BID to replace HCTZ and potassium supplementation. Patient had stable BP after initiation of Aldactone and was discharged home on 12/18 with follow up scheduled at the [facility]. - Date & Time of H&P Date of H&P: 12/15/17 Time of H&P: 00:34 Discharge Exam - Head Exam Head Exam: ATRAUMATIC, NORMOCEPHALIC - Eye Exam Eye Exam: EOMI, Normal appearance - ENT Exam ENT Exam: Mucous Membranes Moist - Neck Exam Neck exam: Full Rom - Respiratory Exam Respiratory Exam: Clear to PA & Lateral, NORMAL BREATHING PATTERN, UNREMARKABLE - Cardiovascular Exam Cardiovascular Exam: REGULAR RHYTHM - GI/Abdominal Exam GI & Abdominal Exam: Normal Bowel Sounds, Unremarkable - Extremities Exam Extremities exam: normal capillary refill, normal inspection, pedal pulses present - Back Exam Back exam: NORMAL INSPECTION - Neurological Exam Neurological exam: Alert, Normal Gait, Oriented x3 - Psychiatric Exam Psychiatric exam: Normal Affect, Normal Mood - Skin Skin Exam: Dry, Intact, Normal Color, Warm Discharge Plan - Discharge Medications Prescriptions: amLODIPine [Norvasc] 10 mg PO DAILY #10 tab Lisinopril [Zestril] 10 mg PO BID #20 tab Metoprolol Tartrate [Lopressor] 25 mg PO BID #20 tab Spironolactone [Aldactone] 25 mg PO BID #20 tab - Follow Up Plan Condition: FAIR Disposition: HOME/ ROUTINE Instructions: DASH Diet, High Blood Pressure (DC), Low Salt Diet, Medicines for High Blood Pressure, Hypertension (DC), Hypertension (GEN) Additional Instructions: Please follow up at the [facility] on Saturday December 23, 2017 at 3PM as scheduled. Please discuss all medical issues addressed during your admission, including all of your new high blood pressure medications. Your blood pressure will need to be monitored closely. You will also need refills for your medications from your doctor. Please bring all of your hospital paperwork that you are being discharged with to your appointment. You will be taking four new medications as follows: 1. Lisinopril 10mg two times per day 2. Metoprolol 25mg two times per day 3. Spironolactone 25mg twice per day 4. Amlodipine 10mg once a day Please take all these medications as prescribed. Please hold medications if you experience dizziness or lightheadedness and go to an emergency room for further evaluation. Should your symptoms return, please seek emergency medical attention immediately. Referrals: [facility] at [facility] [place] [Outside]
--- NOTE | 2017-12-18 19:21 | PN ---
DATE: 12/18/2017 SUBJECTIVE: Patient denies any dizziness, headache, chest pain or shortness of breath. PHYSICAL EXAMINATION: VITAL SIGNS: Blood pressure 135/79, heart rate 75, temperature 98.3, respiration 18. HEENT: Normocephalic. CHEST: Clear. HEART: S1 and S2, regular. EXTREMITIES: No edema. LABORATORY DATA: Hemoglobin and hematocrit 9.1 and 28.7. White count and platelet count are within normal limit. Today's SMA-7 is within normal limits except for potassium of 3.5. Hepatitis profile and HIV antibiotics p.r.n. negative. Echocardiographic study revealed ejection fraction in the range of 40 to 45%. Ikza-xp-keloddst pulmonary hypertension. ASSESSMENT: 1. Hypertension. 2. Hypertensive cardiomyopathy. 3. Mild hypokalemia. RECOMMENDATIONS: Case was discussed with Dr. Keith. Patient was started on Aldactone 25 mg twice a day, Lopressor 25 mg twice a day, hydrochlorothiazide 12.5 mg once a day, Zestril 10 mg once a day, may discontinue K-Dur at this point. Fernando Weaver MD
== END 2017-12-18 18:42 | disposition home or self-care (01) | DRG 134 ==
LOC: ED 16:22 → ERH 22:24 → 2RNO 12-15 00:56
PROVIDERS: ADMIT Hospitalist; ATTEND Hospitalist
DX: I16.0 Hypertensive urgency (principal); E87.6 Hypokalemia; I43 Cardiomyopathy in diseases classified elsewhere; I11.9 Hypertensive heart disease without heart failure; F17.210 Nicotine dependence, cigarettes, uncomplicated; I27.20 Pulmonary hypertension, unspecified; E83.42 Hypomagnesemia; D64.9 Anemia, unspecified; J32.0 Chronic maxillary sinusitis; Z88.0 Allergy status to penicillin